=== PATIENT | female | born 2000 | race Caucasian/White ===

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

== ENCOUNTER 2024-04-28 22:38 | Observation (INO) | payer OTHER ==
[~2024-04-28] VITALS: Ht 170.2 cm; Wt 104.3 kg
[2024-04-28 23:46] LABS: BASOPHILS ABSOLUTE AUTO 0.05 K/mm3 (0.00-0.23); BASOPHILS PERCENT AUTO 1 % (0-2); EOSINOPHILS ABSOLUTE AUTO 0.03 K/mm3 (0.00-0.68); EOSINOPHILS PERCENT AUTO 0 % (0-6); Hematocrit 40.9 % (33.0-51.0); Hemoglobin 13.5 g/dL (11.5-16.0); IMMATURE GRAN ABSOLUTE AUTO 0.04 K/mm3 (0.00-0.10); IMMATURE GRAN PERCENT AUTO 0 % (0-1); LYMPHOCYTES ABSOLUTE AUTO 2.48 K/mm3 (0.84-5.20); LYMPHOCYTES PERCENT AUTO 24 % (21-46); MONOCYTES ABSOLUTE AUTO 0.52 K/mm3 (0.16-1.47); MONOCYTES PERCENT AUTO 5 % (4-13); Mean Corpuscular HGB 26.7 pg (26.0-34.0); Mean Corpuscular Volume 81 fL (80-100); Mean Platelet Volume 8.8 fL (9.1-12.4); NEUTROPHILS ABSOLUTE AUTO 7.22 K/mm3 (1.96-9.15); NEUTROPHILS PERCENT AUTO 70 % (41-73); Platelet Count 373 K/mm3 (150-400); RDW Coefficient Variation 13.1 % (11.7-14.2); RDW Standard Deviation 38.4 fL (35.1-46.3); Red Blood Cell Count 5.06 M/mm3 (3.80-5.20); White Blood Cell Count 10.34 K/mm3 (4.00-11.30)
[2024-04-29 00:05] LABS: Albumin, Blood 4.1 g/dL (3.4-5.0); Albumin/Globulin Ratio 1.1 (0.8-1.8); Bilirubin, Total 1.1 mg/dL (0.1-1.0); Bun/Creatinine Ratio 19.7 (12.0-20.0); Calcium, Blood 9.2 mg/dL (8.5-10.1); Creatinine, Blood 0.76 mg/dL (0.40-1.00); Globulin, Blood 3.8 g/dL (2.2-4.0); Potassium, Blood 3.7 mmol/L (3.5-5.5); Total Protein, Blood 7.9 g/dL (6.4-8.2)
[2024-04-29] MEDS ORDERED: Melatonin 5 MG Tablet PO ONE (03:35)
[2024-04-29 04:29] LABS: Influenza A, PCR NEGATIVE (NEGATIVE); Influenza B, PCR NEGATIVE (NEGATIVE); Resp Syncytial Virus, PCR NEGATIVE (NEGATIVE); SARS-Cov-2 (COVID-19) PCR, MMC NEGATIVE (NEGATIVE)
[2024-04-29 09:56] LABS: Source, Urine Clean Catch
[2024-04-29 10:00] LABS: Appearance, Urine Hazy (Clear); Bilirubin, Urine Neg (Neg); Blood, Urine Neg (Neg); Color, Urine Yellow (P-Yellow); Glucose Qualitative, Urine Neg (Neg); Ketones, Urine Neg (Neg); Leukocyte Esterase, Urine 1+ (Neg); Nitrite, Urine Neg (Neg); Protein, Urine 2+ (Neg); Urobilinogen, Urine 1+ (Normal)
[2024-04-29 10:06] LABS: Bacteria Few /hpf; Red Blood Cells, Urine 0-2 /hpf (0-2); Squamous Epithelial Cells Few /hpf (Few)
[2024-04-29 10:12] LABS: U Amphetamine Screen Not Detected; U Barbituate Screen Not Detected; U Benzodiazapine Screen Not Detected; U Buprenorphine Screen Not Detected; U Cannabinoids Screen Not Detected; U Cocaine Screen Not Detected; U Methadone Screen Not Detected; U Methamphetamine Screen Not Detected; U Opiates Screen Not Detected; U Phencyclidine Screen Not Detected
[2024-04-29 10:13] LABS: U Oxycodone Screen Not Detected
[2024-04-29 10:19] VITALS: BP 113/84
== END 2024-04-29 12:40 | disposition other institution (70) ==
LOC: ER 22:38 → EOR 22:39
PROVIDERS: Physician Assistant; ADMIT Student in an Organized Health Care Education/Training Program
DX: F31.9 Bipolar disorder, unspecified (principal); R45.851 Suicidal ideations; F29 Unspecified psychosis not due to a substance or known physiological condition; G93.41 Metabolic encephalopathy
CPT/HCPCS: 0241U; 80053; 81001; 84703; 85025; 93005; 93010; 99285-25; A9270; G0378

== ENCOUNTER 2024-04-29 11:47 | Inpatient (IN) | payer OTHER ==
[~2024-04-29] VITALS: Ht 170.2 cm; Wt 104.5 kg
[2024-04-29] MEDS ORDERED: OLANZapine ODT 5 MG Tab MM PRN (12:40)
[2024-04-29] MEDS ORDERED: LORazepam 2 MG Tab PO PRN (12:40)
[2024-04-29 14:08] VITALS: BP 125/75
--- NOTE | 2024-04-29 14:35 | NUR ---
PT PREFERS TO GO BY THE NAME CALEB PT ADMITTED TO UNIT 04/29, PT STATES SHE QUIT TAKING HER MH MEDICATIONS FOR THE LAT TWO YEARS, SHE HAS HAD INCREASED SYMPTOMS OVER THE LAST 2 YEARS OF ANXIETY, OVERTHINKING, DEPRESSION, MOOD SWINGS. HER FAMILY BROUGHT HER INTO THE ER WHEN SHE BEDAME "NOT MENTALLY OK," REPORTS SOME AH AND PARANOID OF THING SHE MAY HAVE DONE, SHE IS REMORSEFUL OF THESE THINGS TH VOICES HAVE TOLD HER SHE HAS DONE, THIS HAS CAUSED SI, THOUGH PT STATES SHE WOULD NEVER ACT ON THESE THOUGHTS, IDENTIFIES STRONG FAMILY AND FRIEND NETWORK AND SUPPORT. SHE WANTS TO GET BETTER AND SHE STATES SHE JUST WANTS TO "FEEL OK." SHE WOULD LIE TO GET A JOB, BUT EVERYTIME SHE THINKS ABOUT IT OR TRIES TO FILL OUT AN APPLICATION SHE GETS ANXIOUS. PT COMPLETED 9TH GRADE, SHE BECAME OVERWHELMED WITH THE WORK AND DID NOT COMPLETE SCHOOLING BEYOND THIS. SHE HAS WORKED AT [employer] BEFORE.
--- NOTE | 2024-04-29 17:36 | NUR ---
PT ATE DINNER WITH OTHER PATIENTS AND STAFF, THEN RETURNED TO THE SENSORY ROOM, LISTENING TO BLUETOOTH BOOK, SOFT SPOKEN, COOPERATIVE WITH CARE.
[2024-04-30 08:11] VITALS: BP 116/55
--- NOTE | 2024-04-30 08:32 | NUR ---
PT AWAKE EARLY, PARTICIPATING IN GROUP ACTIVITIES AND BREAKFAST, SHE IS SMILING AND MAKING BETTER EYE CONTACT, SPEAKING WITH BOTH PT'S AND OTHER STAFF MEMBERS.
[2024-04-30] MEDS ORDERED: HyDROXyzine HCl 25 MG Tab PO PRN (10:50)
[2024-04-30] MEDS ORDERED: ARIPiprazole 5 MG Tab PO SCH (11:00)
--- NOTE | 2024-04-30 16:00 | NUR ---
PT SAT AND PLAYED YAHTZEE WITH PATIENTS AND STAFF, PT QUIET, CONVERSIVE, BUT MAKING GOOD EYE CONTACT AND SPONTANEOUS CONVERSATION. PT NOW SITTING IN VISITATION ROOM WITH FAMILY (MOTHER AND FATHER), INTERACTION SEEMS APPROPRIATE AND AFFECTIONATE.
[2024-04-30] MEDS ORDERED: Acetaminophen 500 MG Tab PO PRN (17:25)
--- NOTE | 2024-04-30 18:36 | NUR ---
PT CO HEADACHE, PT STATES SHE WOULD TYPICALLY TAKE TWO EXTRA STRENGTH TYLENOL, ORDER RECEIVED AND MEDICATION GIVEN PER ORDERS, PT STATES PAIN IS SUBSIDING ALREADY, PT REQUESTED USE OF SENSORY ROOM AND IS LISTENING TO MUSIC NOW.
[2024-04-30 20:15] VITALS: BP 114/71
[2024-04-30] MEDS ORDERED: Ibuprofen 400 MG Tab PO PRN (20:50)
[2024-05-01 08:46] VITALS: BP 123/67
--- NOTE | 2024-05-01 17:56 | NUR ---
SHIFT SUMMARY PT A/O X4; PLEASANT AND COOPERATIVE WITH CARE. PT DENIES SI, HI, OR ANY HALLUCINATIONS. SHE IS COMPLIANT WITH MEDICATIONS AND NO PRN'S GIVEN THIS SHIFT. PT HAS BEEN PARTICIPATING IN IROCKE APPROPRIATELY AND HAS HAD NO NEEDS THIS SHIFT.
[2024-05-01 20:16] VITALS: BP 113/61
--- NOTE | 2024-05-02 05:45 | NUR ---
Patient is A&OX4, pleasant and cooperative with care. No SI, HI or AVH noted on assessment. She did have some trouble sleeping overnight, and managed a vistaril, then later 5mg zyprexa before falling asleep around 2200. She has been sleeping since. Prior to bed, she was in activity room coloring while several of her peers watched a movie. As of this writing, her sleep time has been approximately 6.5 hours. will continue close monitoring
--- NOTE | 2024-05-02 11:33 | NUR ---
During psychosocial assessment, pt advised that she is enrolled with [employer] and would like to continue inpatient f/u services with her current outpatient provider. Pt completed NORI for [facility] staff to contact [facility] Mera. Sw contact Damaris Mera by phone [phone], spoke with Scott (i.e. education courses sales representative) and remained class a regional drivers from 1121am to 1132am. Pt advised that she would like services scheduled in the morning. Per Scott, pt will meet with pcp 05/05 at 11am with Abimael Jaramillo and receive therapy and meds with [facility] Jessica Olvera 05/05 at 0815am.
--- NOTE | 2024-05-02 14:51 | NUR ---
Jennifer contacted pt caregiver (i.e. mother Earline) at [phone] to review outpatient appt times as pt wanted caregiver to be advised for discharge f/u appts. 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
--- NOTE | 2024-05-02 17:24 | NUR ---
SHIFT SUMMARY PT A/O X4; PLEASANT AND COOPERATIVE WITH CARE. PT SEEMS TO BE DOING WELL TODAY BUT DID HAVE SOME ANXIETY. SHE WAS GIVEN PRN ATARAX X1 WITH GOOD EFFECT. SHE DENIES SI, HI, OR ANY HALLUCINATIONS. APPOINTMENTS HAVE BEEN SET UP FOR HER AT [facility] TO SEE A THERAPIST AND A PCP. PT WILL MOST LIKELY DC HOME TOMORROW.
[2024-05-02 20:19] VITALS: BP 135/67
--- NOTE | 2024-05-02 22:56 | NUR ---
Jennifer Osborne) visible on unit sitting in day room. Appeared well groomed, quiet, flat. Denied SI/HI/AVTH and pain. Endorsed feeling anxious about being discharged tomorrow, and about not being able to reach mom on the phone earlier. Patient also came to NS tearful later in shift, and requested to use the sensory room to listen to music. Weighted blanket provided and PRN Atarax given to assist with anxiety. PT eventually fell asleep in sensory room. Denied all other concerns/complaints. Safety measures maintained via Q15 monitoring.
--- NOTE | 2024-05-03 05:21 | NUR ---
SEE PREVIOUS NOTE. PATIENT A/O, COOPERATIVE WITH CARE, MED COMPLIANT THIS SHFIT. PATIENT HAD DIFFICULTY FALLING ASLEEP AND CAME TO NS REQUESTING PRN ZYPREXA. PER PATIENT, SHE RECEIVED IT THE PREVIOUS NIGHT AND IT WAS EFFECTIVE. PT OBSERVED TO BE SLEEPING IN ROOM IN NAD, CHEST RISING, AND CURRENTLY STILL ASLEEP. SAFETY MEASURES MAINTAINED.
--- NOTE | 2024-05-03 08:02 | NUR ---
PT STATES HER MOOD IS "GOOD" AND STATES SHE IS "SO MUCH BETTER THAN LAST WEEK," SHE SHARES SHE IS NO LONGER HAVING AUDITORY HALLUCINATIONS, SHE IS SMILING AND MAKING GOOD EYE CONTACT, SHE ATE BREAKFAST, TOOK HER MEDICATIONS AND HAS BEEN ON THE PHONE TALKING TO FAMILY. STATES SHE IS LOOKING FORWARD TO DISCHARGE.
[2024-05-03 08:23] VITALS: BP 114/68
[2024-05-03] MEDS ORDERED: ACET500 PO (11:07)
[2024-05-03] MEDS ORDERED: ABILIFY MYCITE5 M2 PO (11:08)
== END 2024-05-03 12:45 | disposition home or self-care (01) | DRG 885 ==
LOC: BHU 11:47
PROVIDERS: ADMIT Orthopaedic Surgery
DX: F31.63 Bipolar disorder, current episode mixed, severe, without psychotic features (principal); Z79.899 Other long term (current) drug therapy
CPT/HCPCS: A9270